=== PATIENT | female | born 1980 | race Two or more races ===

== ENCOUNTER 2020-03-11 11:40 | Day surgery (SDC) | payer OTHER ==
[2020-03-11] MEDS ORDERED: PERCOCET 5-3251 EACH PO (16:12)
[2020-03-11] MEDS ORDERED: MIRALAX17 GM PO (16:12)
== END 2020-03-11 19:45 | disposition home or self-care (01) ==
LOC: CIR.AMB 11:40
PROVIDERS: ATTEND Surgery
DX: K80.20 Calculus of gallbladder without cholecystitis without obstruction (principal); Z20.828 Contact with and (suspected) exposure to other viral communicable diseases